=== PATIENT | female | born 1950 | race Two or more races ===

== ENCOUNTER 2025-04-03 20:48 | Inpatient (IN) | payer MEDICARE ==
[~2025-04-03] VITALS: Ht 154.9 cm; Wt 88.5 kg
[2025-04-03] MEDS ORDERED: VANCOMYCIN 1 GM /D5W 250 ML PB IV ONE (21:16)
[2025-04-03] MEDS ORDERED: CEFEPIME 1 GM VIAL ONE (21:16)
[2025-04-03 21:29] LABS: CALCIUM, SERUM 9.3 mg/dL (8.5-10.1); CREATININE 0.9 mg/dL (0.6-1.3); SODIUM SERUM 137 mmol/L (136-145); UREA NITROGEN, BLOOD 19 mg/dL (7-18)
[2025-04-03] MEDS: CEFEPIME 1 GM in IV D5W 50 ML IV ONE (21:29)
[2025-04-03] MEDS: IV NS 0.9% 1,000 ML BAG IV ONE (21:29)
[2025-04-03 21:30] LABS: PLATELET COUNT (AUTO) 281 K/uL (150-450); RED BLOOD CELL COUNT(AUTO) 4.39 MIL/uL (4.0-5.2); RED CELL DISTRIBUTION WIDTH 16.7 % (11.5-15.0); WHITE BLOOD COUNT (AUTO) 15.8 K/uL (4.3-11.0)
[2025-04-03 21:38] LABS: LACTIC ACID 3.1 mmol/L (0.4-2.0)
[2025-04-03 21:43] LABS: ASPARTATE AMINOTRANSFERASE 24 U/L (15-37); TOTAL PROTEIN, SERUM 8.2 g/dL (6.4-8.2)
[2025-04-03 21:45] LABS: ALCOHOL, BLOOD < 3 mg/dL (0-10)
[2025-04-03] MEDS: VANCOMYCIN 1 GM in IV D5W 250 ML IV ONE (21:59)
[2025-04-03] MEDS ORDERED: ACETAMINOPHEN ES 500 MG TABLET ONE ×2 (22:02→23:17)
[2025-04-03 22:05] LABS: INR 0.97 (0.91-1.10)
[2025-04-03] MEDS: ACETAMINOPHEN ES 500 MG TABLET PO ONE (22:13)
[2025-04-03 22:53] LABS: APPEARANCE,URINE TURBID (CLEAR); BLOOD, URINE 2+ Ery/uL (NEGATIVE); LEUKOCYTE ESTERASE ,URINE 2+ (NEGATIVE); NITRITE, URINE POSITIVE (NEGATIVE); UGLUCOSE NEGATIVE (NEGATIVE)
[2025-04-03 23:03] LABS: ADD URINE CULTURE YES; URINE AMORPHOUS URATE Rare /HPF (None Seen)
[2025-04-03 23:10] LABS: AMPHETAMINE, URINE NEGATIVE (NEGATIVE); BARBITURATE, URINE NEGATIVE (NEGATIVE); BENZODIAZEPINE, URINE NEGATIVE (NEGATIVE); CANNABINOID, URINE NEGATIVE (NEGATIVE); COCCAINE, URINE NEGATIVE (NEGATIVE); OPIATE, URINE NEGATIVE (NEGATIVE)
[2025-04-03] MEDS ORDERED: MAG HYDROX/AL HYDROX/SIMETH 30 ML UDC PO PRN (23:30)
[2025-04-03] MEDS ORDERED: DOSING PER PHARMACY-CEFEPIME IVPB XX PRN (23:30)
[2025-04-03] MEDS ORDERED: ACETAMINOPHEN 325 MG TABLET PO PRN (23:30)
[2025-04-03] MEDS ORDERED: DEXTROSE 50%-WATER 50 ML DISP.SYRIN IV PRN (23:30)
[2025-04-03] MEDS ORDERED: MAGNESIUM HYDROXIDE 30 ML UDC PO PRN (23:30)
[2025-04-03] MEDS ORDERED: DOSING PER PHARMACY-VANCOMYCIN IV XX PRN (23:30)
[2025-04-04] MEDS ORDERED: CLOP75TA15 PO (00:50)
[2025-04-04] MEDS ORDERED: ENOXAPARIN SODIUM 40 MG/0.4 ML DISP.SYRIN SQ ONE ×2 (00:53→23:30)
[2025-04-04] MEDS ORDERED: VALS160T2 PO (00:55)
[2025-04-04] MEDS ORDERED: ATOR80TA PO (00:55)
[2025-04-04] MEDS ORDERED: QUET25TA PO (00:55)
[2025-04-04] MEDS ORDERED: FAMO-131 PO (00:55)
[2025-04-04] MEDS ORDERED: ASPI-1169 PO (00:55)
[2025-04-04] MEDS: ENOXAPARIN SODIUM 40 MG/0.4 ML DISP.SYRIN SQ SCH (00:56)
[2025-04-04] MEDS: IV NS 0.9% 1,000 ML IV PRN (01:42)
[2025-04-04 04:00] VITALS: BP 115/62; TEMP 97.7; O2SAT 96
[2025-04-04] MEDS: INSULIN REGULAR, HUMAN 100 UNIT/ML 3 ML VIAL SQ PRN (05:45)
[2025-04-04] MEDS: BLOOD SUGAR DIAGNOSTIC 1 EACH STRIP IN SCH (05:45)
[2025-04-04] MEDS: PANTOPRAZOLE 40 MG TABLET.DR PO SCH (07:42)
[2025-04-04 07:50] LABS: ASPARTATE AMINOTRANSFERASE 19.0 U/L (15-37); CALCIUM, SERUM 8.4 mg/dL (8.5-10.1); CREATININE 0.9 mg/dL (0.6-1.3); PHOSPHORUS 3.3 mg/dL (2.5-4.9); SODIUM SERUM 138.0 mmol/L (136-145); TOTAL PROTEIN, SERUM 6.9 g/dL (6.4-8.2); UREA NITROGEN, BLOOD 20.0 mg/dL (7-18)
[2025-04-04 07:57] LABS: PLATELET COUNT (AUTO) 252 K/uL (150-450); RED BLOOD CELL COUNT(AUTO) 4.02 MIL/uL (4.0-5.2); RED CELL DISTRIBUTION WIDTH 16.6 % (11.5-15.0); WHITE BLOOD COUNT (AUTO) 10.8 K/uL (4.3-11.0)
[2025-04-04 08:00] VITALS: BP 101/53; TEMP 97.7; O2SAT 94
[2025-04-04] MEDS ORDERED: NITR50CA PO (08:27)
[2025-04-04 08:50] LABS: LACTIC ACID 2.2 mmol/L (0.4-2.0)
[2025-04-04] MEDS ORDERED: [UNRECOGNIZED DRUG - OTHER] PO (11:04)
[2025-04-04] MEDS ORDERED: DOCU-141 PO (11:04)
[2025-04-04] MEDS ORDERED: ESTR42.53 VG (11:04)
[2025-04-04] MEDS ORDERED: PSYL822P6 PO (11:04)
[2025-04-04] MEDS ORDERED: HYDR-4076 PO (11:04)
[2025-04-04] MEDS ORDERED: CHOL200059 PO (11:04)
[2025-04-04] MEDS ORDERED: BIOT1CAP3 PO (11:04)
[2025-04-04] MEDS ORDERED: CRANBERRY PO (11:04)
[2025-04-04] MEDS ORDERED: SUPER B PO (11:04)
[2025-04-04] MEDS ORDERED: ONDA-97 PO (11:04)
[2025-04-04 12:00] VITALS: BP 110/63; TEMP 98.5; O2SAT 95
[2025-04-04] MEDS: ONDANSETRON HCL/PF 4 MG/2 ML VIAL IVP PRN (12:44)
[2025-04-04] MEDS: CEFEPIME 2 GM in IV D5W 100 ML IV SCH (12:45)
[2025-04-04] MEDS: VANCOMYCIN 750 MG in IV D5W 250 ML IV SCH (12:47)
[2025-04-04 16:00] VITALS: BP 101/64; TEMP 97.9; O2SAT 95
[2025-04-04] MEDS: QUETIAPINE FUMARATE 25 MG TABLET PO SCH (17:47)
[2025-04-04 20:00] VITALS: BP 124/54; TEMP 97; O2SAT 95
[2025-04-05 04:00] VITALS: BP 128/58; TEMP 97.2; O2SAT 95
[2025-04-05 07:19] LABS: PLATELET COUNT (AUTO) 197 K/uL (150-450); RED BLOOD CELL COUNT(AUTO) 3.62 MIL/uL (4.0-5.2); RED CELL DISTRIBUTION WIDTH 16.6 % (11.5-15.0); WHITE BLOOD COUNT (AUTO) 7.3 K/uL (4.3-11.0)
[2025-04-05 07:24] LABS: CALCIUM, SERUM 8.6 mg/dL (8.5-10.1); CREATININE 1.1 mg/dL (0.6-1.3); PHOSPHORUS 2.6 mg/dL (2.5-4.9); SODIUM SERUM 141.0 mmol/L (136-145); UREA NITROGEN, BLOOD 11.0 mg/dL (7-18)
[2025-04-05 08:00] VITALS: BP 122/76; TEMP 97.5; O2SAT 96
[2025-04-05] MEDS: CLOPIDOGREL BISULFATE 75 MG TABLET PO SCH (08:37)
[2025-04-05] MEDS: ATORVASTATIN 40 MG TABLET PO SCH (08:38)
[2025-04-05] MEDS: VALSARTAN 80 MG TABLET PO SCH (08:38)
[2025-04-05] MEDS: FAMOTIDINE (20 MG) 20 MG TABLET PO SCH (08:38)
[2025-04-05] MEDS: ASPIRIN 81 MG TAB.CHEW PO SCH (08:52)
[2025-04-05 16:00] VITALS: BP 128/66; TEMP 97.7; O2SAT 98
[2025-04-05 20:00] VITALS: BP 121/64; TEMP 97.7; O2SAT 98
[2025-04-05] MEDS ORDERED: INSULIN GLARGINE, 100 UNIT/ML CARTRIDGE SQ SCH (22:00)
[2025-04-06 04:00] VITALS: BP 126/82; TEMP 98.1; O2SAT 98
[2025-04-06 07:09] LABS: PLATELET COUNT (AUTO) 211 K/uL (150-450); RED BLOOD CELL COUNT(AUTO) 3.68 MIL/uL (4.0-5.2); RED CELL DISTRIBUTION WIDTH 16.6 % (11.5-15.0); WHITE BLOOD COUNT (AUTO) 7.5 K/uL (4.3-11.0)
[2025-04-06 07:32] LABS: CALCIUM, SERUM 8.8 mg/dL (8.5-10.1); CREATININE 1.0 mg/dL (0.6-1.3); PHOSPHORUS 3.0 mg/dL (2.5-4.9); SODIUM SERUM 143.0 mmol/L (136-145); UREA NITROGEN, BLOOD 11.0 mg/dL (7-18)
[2025-04-06 12:00] VITALS: BP 143/71; TEMP 98.1; O2SAT 97
[2025-04-06] MEDS: CEPHALEXIN MONOHYDRATE 500 MG CAPSULE PO SCH (12:09)
[2025-04-06] MEDS ORDERED: CEPH-570 PO (12:14)
[2025-04-06] MEDS ORDERED: METF-440 PO ×2 (12:14→12:25)
[2025-04-06] MEDS ORDERED: LACT1CAP69 PO (12:25)
== END 2025-04-06 15:46 | disposition home health service (06) | DRG 871 ==
LOC: ER 20:53 → TELE1 04-04 00:32 → MEDSG1 04-04 01:05
PROVIDERS: ADMIT Nurse Practitioner Family; ATTEND Nurse Practitioner Acute Care
DX: A41.9 Sepsis, unspecified organism (principal); G92.8 Other toxic encephalopathy; E44.1 Mild protein-calorie malnutrition; N39.0 Urinary tract infection, site not specified; E87.20 Acidosis, unspecified; D68.59 Other primary thrombophilia; Z16.29 Resistance to other single specified antibiotic; G91.9 Hydrocephalus, unspecified; Z20.822 Contact with and (suspected) exposure to COVID-19; F03.A0 Unspecified dementia, mild, without behavioral disturbance, psychotic disturbance, mood disturbance, and anxiety; Z86.73 Personal history of transient ischemic attack (TIA), and cerebral infarction without residual deficits; B96.89 Other specified bacterial agents as the cause of diseases classified elsewhere; R79.89 Other specified abnormal findings of blood chemistry; E88.09 Other disorders of plasma-protein metabolism, not elsewhere classified; E11.65 Type 2 diabetes mellitus with hyperglycemia; E66.9 Obesity, unspecified; Z68.34 Body mass index [BMI] 34.0-34.9, adult; Z79.84 Long term (current) use of oral hypoglycemic drugs; Z85.72 Personal history of non-Hodgkin lymphomas; Z87.440 Personal history of urinary (tract) infections; Z87.442 Personal history of urinary calculi; Z88.0 Allergy status to penicillin; Z88.1 Allergy status to other antibiotic agents; Z88.2 Allergy status to sulfonamides; Z88.3 Allergy status to other anti-infective agents; Z88.5 Allergy status to narcotic agent; Z98.2 Presence of cerebrospinal fluid drainage device; B96.20 Unspecified Escherichia coli [E. coli] as the cause of diseases classified elsewhere; N20.0 Calculus of kidney
CPT/HCPCS: 36415; 70450-TC; 71045-TC; 80048-TC; 80076-TC; 80202-TC; 81001; 82962-TC; 83605-TC; 83735-TC; 84100-TC; 84443-TC; 84484-TC; 85025-TC; 85730-TC; 87040-TC; 87086-TC; 87186-TC; A4223; G0378; G0480; J0692; J1650; J1815; J2405; J3373; J3374; J7030; J7050; J7060

== ENCOUNTER 2025-05-01 03:23 | Emergency (ER) | payer MEDICARE ==
[~2025-05-01] VITALS: Ht 157.5 cm; Wt 94.3 kg
[~2025-05-01 03:23] MED LIST: ASPI-1169 PO; ATOR80TA PO; BIOT1CAP3 PO; CEPH-570 PO; CHOL200059 PO; CLOP75TA15 PO; CRANBERRY PO; DOCU-141 PO; ESTR42.53 VG; FAMO-131 PO; HYDR-4076 PO; LACT1CAP69 PO; METF-440 PO; NITR50CA PO; ONDA-97 PO; PSYL822P6 PO; QUET25TA PO; SUPER B PO; VALS160T2 PO; [UNRECOGNIZED DRUG - OTHER] PO
[2025-05-01] MEDS: IV NS 0.9% 500 ML BAG IV ONE (03:56)
[2025-05-01 03:57] LABS: PLATELET COUNT (AUTO) 254 K/uL (150-450); RED BLOOD CELL COUNT(AUTO) 4.46 MIL/uL (4.0-5.2); RED CELL DISTRIBUTION WIDTH 16.7 % (11.5-15.0); WHITE BLOOD COUNT (AUTO) 12.7 K/uL (4.3-11.0)
[2025-05-01] MEDS ORDERED: ACETAMINOPHEN ES 500 MG TABLET ONE (03:57)
[2025-05-01] MEDS: ACETAMINOPHEN ES 500 MG TABLET PO ONE (04:02)
[2025-05-01 04:14] LABS: ASPARTATE AMINOTRANSFERASE 22 U/L (15-37); CALCIUM, SERUM 9.7 mg/dL (8.5-10.1); CREATININE 0.9 mg/dL (0.6-1.3); SODIUM SERUM 141 mmol/L (136-145); TOTAL PROTEIN, SERUM 8.3 g/dL (6.4-8.2); UREA NITROGEN, BLOOD 14 mg/dL (7-18)
[2025-05-01 04:15] LABS: INR 0.97 (0.91-1.10)
[2025-05-01 04:17] LABS: APPEARANCE,URINE SLIGHTLY CLOUDY (CLEAR); BLOOD, URINE TRACE-INTA Ery/uL (NEGATIVE); LEUKOCYTE ESTERASE ,URINE 2+ (NEGATIVE); NITRITE, URINE POSITIVE (NEGATIVE); UGLUCOSE NEGATIVE (NEGATIVE)
[2025-05-01 04:18] LABS: LACTIC ACID 2.3 mmol/L (0.4-2.0)
[2025-05-01 04:21] LABS: ADD URINE CULTURE YES; SQUAMOUS EPITHELIAL CELL,UR Moderate /HPF (None Seen)
[2025-05-01] MEDS ORDERED: CEFTRIAXONE 1GM BAG (ER ONLY) 50 ML IV ONE (05:22)
[2025-05-01] MEDS: CEFTRIAXONE 1GM BAG (ER ONLY) 1 GM/50 ML PIGGYBACK IV ONE (05:30)
[2025-05-01] MEDS ORDERED: ACETAMINOPHEN 325 MG TABLET PO PRN (06:30)
[2025-05-01] MEDS ORDERED: MAG HYDROX/AL HYDROX/SIMETH 30 ML UDC PO PRN (06:30)
[2025-05-01] MEDS ORDERED: MAGNESIUM HYDROXIDE 30 ML UDC PO PRN (06:30)
[2025-05-01] MEDS ORDERED: ONDANSETRON HCL/PF 4 MG/2 ML VIAL IVP PRN (06:30)
[2025-05-01 08:00] VITALS: BP 149/79; TEMP 99; O2SAT 96
[2025-05-01] MEDS: PANTOPRAZOLE 40 MG VIAL IV SCH (09:46)
[2025-05-01 12:00] VITALS: BP 135/75; TEMP 98.2; O2SAT 96
[2025-05-01 12:53] LABS: CALCIUM, SERUM 9.0 mg/dL (8.5-10.1); CREATININE 1.1 mg/dL (0.6-1.3); PHOSPHORUS 3.6 mg/dL (2.5-4.9); SODIUM SERUM 137.0 mmol/L (136-145); UREA NITROGEN, BLOOD 16.0 mg/dL (7-18)
[2025-05-01] MEDS: IV NS 0.9% 1,000 ML IV PRN (13:49)
[2025-05-01] MEDS: CEFEPIME 2 GM in IV D5W 100 ML IV SCH (14:14)
[2025-05-01 14:22] LABS: PLATELET COUNT (AUTO) 244 K/uL (150-450); RED BLOOD CELL COUNT(AUTO) 4.02 MIL/uL (4.0-5.2); RED CELL DISTRIBUTION WIDTH 16.6 % (11.5-15.0); WHITE BLOOD COUNT (AUTO) 11.8 K/uL (4.3-11.0)
[2025-05-01 16:00] VITALS: BP 125/73; TEMP 98.2; O2SAT 96
[2025-05-01] MEDS: FAMOTIDINE (20 MG) 20 MG TABLET PO SCH (17:10)
[2025-05-01] MEDS: ATORVASTATIN 40 MG TABLET PO SCH (17:10)
[2025-05-01] MEDS: QUETIAPINE FUMARATE 25 MG TABLET PO SCH (17:11)
[2025-05-01] MEDS: ASPIRIN 81 MG TAB.CHEW PO SCH (17:11)
[2025-05-01 17:49] LABS: APPEARANCE,URINE SLIGHTLY CLOUDY (CLEAR); BLOOD, URINE TRACE-INTA Ery/uL (NEGATIVE); LEUKOCYTE ESTERASE ,URINE 1+ (NEGATIVE); NITRITE, URINE NEGATIVE (NEGATIVE); UGLUCOSE NEGATIVE (NEGATIVE)
[2025-05-01 17:57] LABS: ADD URINE CULTURE YES
[2025-05-01 20:00] VITALS: BP 133/67; TEMP 98.1; O2SAT 94
[2025-05-01] MEDS ORDERED: CEFTRIAXONE 1 G in IV D5W 50 ML IV SCH (21:00)
[2025-05-02] VITALS: BP 117/71; TEMP 97.5; O2SAT 96
[2025-05-02 04:00] VITALS: BP 132/88; TEMP 98; O2SAT 97
[2025-05-02 08:00] VITALS: BP 146/73; TEMP 98.4
[2025-05-02] MEDS: DOCUSATE SODIUM 100 MG CAPSULE PO SCH (08:27)
[2025-05-02] MEDS: ENOXAPARIN SODIUM 40 MG/0.4 ML DISP.SYRIN SQ SCH (08:27)
[2025-05-02] MEDS: CLOPIDOGREL BISULFATE 75 MG TABLET PO SCH (08:28)
[2025-05-02] MEDS: VALSARTAN 80 MG TABLET PO SCH (08:28)
[2025-05-02] MEDS: PANTOPRAZOLE 40 MG TABLET.DR PO SCH (08:28)
[2025-05-02] MEDS: CHOLECALCIFEROL 1,000 UNIT TABLET (VIT D3) PO SCH (08:29)
[2025-05-02 10:09] LABS: PLATELET COUNT (AUTO) 211 K/uL (150-450); RED BLOOD CELL COUNT(AUTO) 3.86 MIL/uL (4.0-5.2); RED CELL DISTRIBUTION WIDTH 16.4 % (11.5-15.0); WHITE BLOOD COUNT (AUTO) 9.9 K/uL (4.3-11.0)
[2025-05-02 10:17] LABS: CALCIUM, SERUM 8.6 mg/dL (8.5-10.1); CREATININE 1.0 mg/dL (0.6-1.3); SODIUM SERUM 139.0 mmol/L (136-145); UREA NITROGEN, BLOOD 17.0 mg/dL (7-18)
[2025-05-02 10:21] LABS: PHOSPHORUS 2.9 mg/dL (2.5-4.9)
[2025-05-02 10:26] LABS: LACTIC ACID 1.5 mmol/L (0.4-2.0)
[2025-05-02 12:00] VITALS: BP 125/71; TEMP 98.4; O2SAT 96
[2025-05-02 16:00] VITALS: BP 122/86; TEMP 98.8; O2SAT 96
[2025-05-02 20:00] VITALS: BP 130/72; TEMP 98.2; O2SAT 95
[2025-05-03] VITALS: BP 131/72; TEMP 97.7; O2SAT 95
[2025-05-03 04:00] VITALS: BP 119/70; TEMP 97.7; O2SAT 96
[2025-05-03 07:17] LABS: PLATELET COUNT (AUTO) 190 K/uL (150-450); RED BLOOD CELL COUNT(AUTO) 3.70 MIL/uL (4.0-5.2); RED CELL DISTRIBUTION WIDTH 16.6 % (11.5-15.0); WHITE BLOOD COUNT (AUTO) 7.3 K/uL (4.3-11.0)
[2025-05-03 08:13] LABS: CALCIUM, SERUM 8.9 mg/dL (8.5-10.1); CREATININE 0.9 mg/dL (0.6-1.3); PHOSPHORUS 3.3 mg/dL (2.5-4.9); SODIUM SERUM 143.0 mmol/L (136-145); UREA NITROGEN, BLOOD 20.0 mg/dL (7-18)
[2025-05-03 08:30] VITALS: BP 138/62; TEMP 98.1; O2SAT 96
[2025-05-03] MEDS ORDERED: CEFP200T14 PO (11:48)
[2025-05-03 12:06] VITALS: BP 122/54; TEMP 97.9; O2SAT 96
== END 2025-05-03 12:50 | disposition home or self-care (01) ==
LOC: ER 03:27 → UNDOADMIN 07:50 → TELE1 07:50 → ER 05-03 12:50 → UNDODISIN 05-03 13:02
DX: R41.82 Altered mental status, unspecified (principal); A41.9 Sepsis, unspecified organism; N39.0 Urinary tract infection, site not specified; F03.90 Unspecified dementia, unspecified severity, without behavioral disturbance, psychotic disturbance, mood disturbance, and anxiety; Z86.73 Personal history of transient ischemic attack (TIA), and cerebral infarction without residual deficits; Z88.2 Allergy status to sulfonamides; Z79.899 Other long term (current) drug therapy
CPT/HCPCS: 99291; 96365; 70450; 92611; 96375; 93005; 71045; 84145; 85025 ×4; 80048 ×4; 87077; 87040 ×2; 87086 ×2; 83605 ×3; 80076; 83735 ×3; 84100 ×3; 87186; 81001 ×2; 36415 ×3; 84443; 84484; 85730; 96366; 96367; 92526 ×3; J0696 ×2; J7060 ×3; J7030 ×3; J7050; J2470; J1650; A4223 ×2; G0378; J0692